=== PATIENT | male | born 1970 | race Caucasian/White ===

== ENCOUNTER → 2019-08-18 09:21 | Outpatient (CLI) | payer OTHER, SELFPAY | PROVIDERS: PCP Family Medicine; Visit Provider Physician Assistant | DX: L03.019 Cellulitis of unspecified finger (principal) | CPT/HCPCS: 87070; 87077; 87147; 87186; 87205 ==

== ENCOUNTER → 2019-09-17 07:07 | Outpatient (CLI) | payer OTHER, SELFPAY ==
[2019-09-17 07:43] LABS: Add Manual Diff / Slide Review NO; Basophils Absolute Auto 0 /uL (0-100); Basophils Percent Auto 0.7 % (0-2); Eosinophils Absolute Auto 100 /uL (0-450); Eosinophils Percent Auto 2.1 % (2-4); Hematocrit 43.7 % (41-53); Hemoglobin 15.2 g/dL (13.5-17.5); Lymphocytes Absolute Auto 2000 /uL (1100-4500); Mean Corpuscular HGB Conc 34.8 % (30-36); Mean Corpuscular Hemoglobin 30.3 PG (26-34); Mean Corpuscular Volume 87.2 fL (80-100); Monocytes Absolute Auto 600 /uL (0-900); Monocytes Percent Auto 9.2 % (3-14); Neutrophils Absolute Auto 3400 /uL (1500-7000); Platelet Count 242 X10^3/uL (150-400); Red Blood Cell Count 5.01 X10^6/uL (4.5-5.9); Red Cell Distribution Width 14.2 % (11.6-14.8); White Blood Cell Count 6.2 X10^3/uL (4.5-11.0)
[2019-09-17 07:57] LABS: Alanine Aminotransferase 25 IU/L (21-72); Albumin 4.4 g/dL (3.5-5.0); Albumin Globulin Ratio 1.2 (1.0-2.8); Alkaline Phosphatase 60 U/L (38-126); Aspartate Aminotransferase 26 IU/L (17-59); Bilirubin Total 0.5 mg/dL (0.2-1.3); Blood Urea Nitrogen 18 mg/dL (9-20); Calcium 9.6 mg/dL (8.4-10.2); Carbon Dioxide 29 mmol/L (22-32); Chloride 104 mmol/L (98-107); Cholesterol 253 mg/dL (140-199); Estimated Glomerular Filt Rate > 60.0 mL/min (>60); Globulin 3.7 g/dL (1.7-4.1); Glucose 116 mg/dL (70-100); HDL Cholesterol 39 mg/dL (40-60); HEMOLYSIS 16 (0-50); LDL Cholesterol Calculated 188 mg/dL (<100); Potassium 4.7 mmol/L (3.4-5.1); Sodium 139 mmol/L (137-145); Total Protein 8.1 g/dL (6.3-8.2); Triglycerides 128 mg/dL (35-150)
[2019-09-17 08:34] LABS: TSH w/ Reflex to FT4 3.23 uIU/mL (0.47-4.68)
== END ==
PROVIDERS: PCP Family Medicine; Visit Provider Family Medicine
DX: Z13.1 Encounter for screening for diabetes mellitus (principal); Z13.6 Encounter for screening for cardiovascular disorders
CPT/HCPCS: 36415; 80053; 80061; 84443; 85025

== ENCOUNTER → 2021-03-28 07:47 | Outpatient (CLI) | payer OTHER, SELFPAY ==
[2021-03-28 08:59] LABS: Add Manual Diff / Slide Review NO; Basophils Absolute Auto 100 /uL (0-100); Basophils Percent Auto 1.1 % (0-2); Eosinophils Absolute Auto 100 /uL (0-450); Hematocrit 44.1 % (41-53); Hemoglobin 15.2 g/dL (13.5-17.5); Lymphocytes Absolute Auto 2100 /uL (1100-4500); Lymphocytes Percent Auto 33.8 % (25-40); Mean Corpuscular HGB Conc 34.4 % (30-36); Mean Corpuscular Hemoglobin 30.5 PG (26-34); Mean Corpuscular Volume 88.5 fL (80-100); Monocytes Absolute Auto 600 /uL (0-900); Monocytes Percent Auto 10.2 % (3-14); Neutrophils Absolute Auto 3300 /uL (1500-7000); Neutrophils Percent Auto 52.9 % (50-75); Platelet Count 229 X10^3/uL (150-400); Red Blood Cell Count 4.98 X10^6/uL (4.5-5.9); Red Cell Distribution Width 13.3 % (11.6-14.8); White Blood Cell Count 6.3 X10^3/uL (4.5-11.0)
[2021-03-28 09:34] LABS: Alanine Aminotransferase 20 IU/L (<50); Albumin 4.1 g/dL (3.5-5.0); Albumin Globulin Ratio 1.2 (1.0-2.8); Alkaline Phosphatase 55 U/L (38-126); Aspartate Aminotransferase 26 IU/L (17-59); BUN Creatinine Ratio 26.8 (6-22); Bilirubin Total 0.4 mg/dL (0.2-1.3); Blood Urea Nitrogen 26 mg/dL (9-20); Calcium 9.7 mg/dL (8.4-10.2); Carbon Dioxide 27 mmol/L (22-32); Chloride 102 mmol/L (98-107); Cholesterol 205 mg/dL (140-199); Estimated Glomerular Filt Rate > 60.0 mL/min (>60); Globulin 3.5 g/dL (1.7-4.1); Glucose 96 mg/dL (70-100); HDL Cholesterol 55 mg/dL (40-60); HEMOLYSIS < 15 (0-50); LDL Cholesterol Calculated 137 mg/dL (<100); Potassium 4.6 mmol/L (3.4-5.1); Sodium 137 mmol/L (137-145); Total Protein 7.6 g/dL (6.3-8.2); Triglycerides 66 mg/dL (35-150)
[2021-03-28 09:42] LABS: Hemoglobin A1C% w Est Avg Glu 5.3 % (4.0-6.0)
== END ==
PROVIDERS: PCP Family Medicine; Referring Provider Family Medicine; Visit Provider Family Medicine
DX: E66.9 Obesity, unspecified (principal); R73.01 Impaired fasting glucose
CPT/HCPCS: 36415; 80053; 80061; 83036; 85025

== ENCOUNTER → 2021-04-14 11:18 | Outpatient (CLI) | payer OTHER, SELFPAY ==
[2021-04-14 12:12] LABS: COVID19 -Nasal RAPID Negative (Negative)
== END ==
PROVIDERS: PCP Family Medicine; Visit Provider Specialist
DX: Z20.822 Contact with and (suspected) exposure to COVID-19 (principal)
CPT/HCPCS: 87635; C9803

== ENCOUNTER 2021-04-17 12:03 | Day surgery (SDC) | payer OTHER, SELFPAY ==
[2021-04-14 13:27] VITALS: BMI 30.5
[2021-04-17] VITALS (8 sets, daily range): BP systolic 123–141; BP diastolic 76–86; PULSE 55–71; RESP 12–97; TEMP 36–36.9; O2SAT 88–98; BMI 29.2
[2021-04-17] MEDS: LACTATED RINGERS 1,000 ML 42 ML IV ×2 (12:53→13:59)
--- NOTE | 2021-04-17 12:58 | PM.PREOP ---
Pre-operative Note COVID-19 COVID-19 status: Negative Result date/Date tested (Pos, Neg/Pending): 04/16/21 Interval Note History & Physical reviewed/Exam performed by Physician: Yes Changes to H&P: No
--- NOTE | 2021-04-17 13:37 | SUR.OPER ---
Supine on padded OR bed, head on pillow, arms secured on padded arm boards at <90 degrees abduction, legs uncrossed, safety belt at thigh, tape over blanket over lower legs.
[2021-04-17] MEDS: CEFAZOLIN 1 GM VIAL 2 GM IV (13:43)
[2021-04-17] MEDS: BUPIVACAINE 0.5% (PF) VIAL 30 ML INJ (13:43)
--- NOTE | 2021-04-17 14:12 | PM.OP.1 ---
Operative Date/Time/Diagnoses Date of procedure: 04/17/21 Time of procedure: 14:12 Pre-op diagnosis: Incarcerated umbilical hernia Post-op diagnosis: same Procedure & Clinicians Procedure: Repair primary without mesh Same procedure as scheduled: Yes Indications: Symptomatic umbilical hernia with chronic incarceration. Surgeon: Amilcar [place] Click Yes if Unassisted: Yes Anesthesia Type: General Operative Notes Findings: Small amount of fat incarcerated in a large sac. Closure Type: primary Specimen(s): none sent Prosthetic devices, grafts, tissues, transplants, or devices: None Estimated Blood Loss (mL): 5 Blood products transfused: none Procedure in detail: The patient was placed supine on the operating room table and underwent general LMA anesthesia. They were prepped and draped in the usual fashion. A curvilinear incision was made under the umbilicus and carried down to the level of the fascia. The fascia overlying was cleared of tissue. The opening was approximately 1.5 cm in diameter. It was felt to be too small to place mesh under the fascia without extending the fascial opening. The fascia was closed with interrupted/figure of 8 1. Ethibond.. The subcu was closed with interrupted 3 0 Vicryl and the skin was closed with a running 4 0 Vicryl subcuticular stitch and Steri-Strips. Dressing was applied and the patient was awakened and taken to the recovery area in good condition. The patient appeared to tolerate the procedure well. Complications: none Post-operative Condition: stable Disposition: PACU
[2021-04-17] MEDS: OXYCODONE/ACETAMINOPHEN 5/325 TABLET 1 TAB PO (14:31)
== END 2021-04-17 15:14 | disposition home or self-care (01) ==
PROVIDERS: PCP Family Medicine; Referring Provider Specialist; Visit Provider Specialist
PROC: (CPT 49587; principal; 2021-04-17 13:15)
DX: K42.0 Umbilical hernia with obstruction, without gangrene (principal)
CPT/HCPCS: 49587; J0330; J0690; J1100; J2405; J2704; J3010

== ENCOUNTER → 2021-11-06 09:28 | Outpatient (CLI) | payer OTHER, SELFPAY ==
[2021-11-06 11:02] LABS: COVID19 -Nasal RAPID Negative (Negative)
== END ==
PROVIDERS: PCP Family Medicine; Visit Provider Surgery
DX: Z01.812 Encounter for preprocedural laboratory examination (principal); Z20.822 Contact with and (suspected) exposure to COVID-19
CPT/HCPCS: 87635; C9803

== ENCOUNTER 2021-11-09 06:38 | Day surgery (SDC) | payer OTHER, SELFPAY ==
[2021-11-09] VITALS (7 sets, daily range): BP systolic 105–123; BP diastolic 71–82; PULSE 61–74; RESP 12–93; TEMP 36.1–36.9; O2SAT 66–96; BMI 30.7
[2021-11-09] MEDS: LACTATED RINGERS 1,000 ML 42 ML IV (07:18)
--- NOTE | 2021-11-09 07:46 | P.HP_ITS ---
History of Present Illness History of Present Illness Date Patient Seen: 11/09/21 Time Patient Seen: 07:46 Chief complaint: SDC Narrative: The patient presents for colorectal sreening. They have never had any previous examination for such. No personal or family history of colon cancer. On further history denies any recent gastrointestinal symptoms. No nausea, vomiting, abdominal pain, loss of appetite, unexplained weight loss, change in bowel habits, diarrhea, constipation, melena, hematochezia, or bright red blood per rectum. Patient History Family & Social History Family History Father Age: 77 Essential hypertension Leukemia, unspecified leukemia type High cholesterol Stroke Mother Age: 72 High cholesterol Grandfather Heart disease Social History: household members spouse,children Tobacco & Substance use: Smoking Status Never smoker alcohol intake current alcohol intake frequency holiday/special occasion Substance Use Type does not use Meds Home Medications and Allergies Home Medications Medication Instructions Recorded Confirmed Type cholecalciferol (vitamin D3) 10 10 mcg PO DAILY 04/02/21 11/09/21 History mcg (400 unit) capsule multivitamin 1 tab PO DAILY 04/02/21 11/09/21 History plant stanol micah 450 mg tablet 450 mg PO DAILY 04/02/21 11/09/21 History (Cholest Off) turmeric 400 mg capsule 400 mg PO DAILY 04/02/21 11/09/21 History Allergies Allergy/AdvReac Type Severity Reaction Status Date / Time No Known Drug Allergies Allergy Verified 11/09/21 07:07 Exam Vital Signs (past 8 hours): - 11/09/21 07:22 Temperature 98.3 F Pulse Rate 71 Respiratory Rate 16 Blood Pressure 123/82 Pulse Oximetry 96 Oxygen Delivery Method Room Air Narrative Exam Narrative: Constitutional-he is oriented to person, place and time. No apparent distress Cardiovascular- regular rate, no peripheral edema Pulmonary-unlabored respiratory effort, no audible wheezing Abdominal-soft, non-tender, non-distended Assessment & Plan Assessment & Plan narrative: The patient requires colorectal screening and colonoscopy is recommended. Technical details were discussed. Risks, benefits, alternatives explained. Risks including but not limited to myocardial infarction, aspiration, bleeding, pain, missed lesion, incomplete examination, need for further radiographic mika dies, colonic perforation, and need for major abdominal surgery were discussed. All questions were answered to their satisfaction, and they are in agreement with this plan. Time Spent With Patient Critical Care time: I spent a total of [] minutes of critical care time on this patient's care today; this time is exclusive of procedural time.
[2021-11-09] MEDS: MIDAZOLAM 5 MG/5 ML VIAL IV (07:56)
[2021-11-09] MEDS: fentaNYL 250 MCG/5 ML INJ IV (07:59)
--- NOTE | 2021-11-09 08:08 | PM.OP.COLON ---
Operative Date/Time/Diagnoses Date of procedure: 11/09/21 Time of procedure: 08:08 Pre-op diagnosis: Screening colonoscopy Post-op diagnosis: same Procedure & Clinicians Study performed: Colonoscopy Same procedure as scheduled: Yes Indications: Screening Surgeon: Corky Shepherd Procedure Notes Procedure in detail: Medications: Conscious sedation using 7mg IV midazolam and 150mcg IV of fentanyl The history and physical was performed/updated and the patient is ASA class is 1. The procedure was discussed in detail with the patient. Potential risks complications including infection, bleeding, missed diagnosis, perforation, need for surgery, and were explained. Their questions were answered and informed consent was obtained. Patient was brought to the procedure room and placed standard monitoring equipment. The patient's vital signs were monitored continuously throughout the entire procedure. Prior to starting time-out was performed. The patient was placed in the left lateral recumbent position. Procedural sedation was administered. Examination began with a thorough inspection of the perianal area there was no evidence of fissures, fistulae, external hemorrhoids or cutaneous malignancy. The colonoscopy scope was then placed into the anal canal and was advanced to the cecum, which was identified by the ileocecal valve, the appendiceal orifice and the confluence of the taenia. The scope was then slowly withdrawn examining colon thoroughly in all directions, irrigating it of any residual stool. FINDINGS 1. No masses or polyps 2. Sigmoid diverticulosis 3. Grade 1 internal hemorrhoids The patient tolerated the procedure well. They will be discharged once criteria are met. The prep was of good/excellent quality. The withdrawl time was 6 minutes. The sedation time was 16 minutes. Specimen(s): none sent Complications: none Impression: Normal colonoscopy Post-procedure Recommendations: Colonoscopy in 10 years Disposition: same day surgery
--- NOTE | 2021-11-09 08:26 | SUR.PHASEI ---
0812 hrs: Pt transported to PACU breathing unassisted, Report from YOLA Baltazar.
--- NOTE | 2021-11-09 08:51 | SUR.PHASEII ---
Pt up in wheelchair, dressed self in bathroom, waiting for and drinking coffee. Denies pain and nausea.
== END 2021-11-09 09:05 | disposition home or self-care (01) ==
PROVIDERS: PCP Family Medicine; Referring Provider Surgery; Visit Provider Surgery
PROC: 0DJD8ZZ Inspection of Lower Intestinal Tract, Via Natural or Artificial Opening Endoscopic (ICD-10-PCS; CPT 45378; principal; 2021-11-09 07:45)
DX: Z12.11 Encounter for screening for malignant neoplasm of colon (principal); K57.30 Diverticulosis of large intestine without perforation or abscess without bleeding; K64.0 First degree hemorrhoids
CPT/HCPCS: 45378; 99152; J2250; J3010

== ENCOUNTER → 2022-05-25 16:33 | Outpatient (CLI) | payer OTHER, SELFPAY ==
--- NOTE | 2022-05-25 16:37 | DI.RAD.S_ITS ---
PROCEDURE: XR ANKLE RT MIN 3V INDICATIONS: Right ankle injury TECHNIQUE: 3 views of the ankle were acquired. COMPARISON: None. FINDINGS: Bones: No fractures or dislocations. Ankle mortise is normally aligned. No suspicious bony lesions. Soft tissues: No tibiotalar joint effusion. Achilles tendon appears normal. IMPRESSION: No definite radiographic abnormality. If pain persists with conservative management, consider cross sectional imaging such as CT or MRI for further assessment. Dictated by: Jass Goldman [facility] Interpreted: Nikhil Irizarry MD on 05/26/2022 at 16:12 Transcribed by: SERGE on 05/26/2022 at 16:12 Approved by: Nikhil Irizarry M.D. on 05/26/2022 at 16:48
== END ==
PROVIDERS: PCP Family Medicine; Referring Provider Nurse Practitioner Family; Visit Provider Nurse Practitioner Family
DX: S99.911A Unspecified injury of right ankle, initial encounter (principal)
CPT/HCPCS: 73610

== ENCOUNTER → 2023-02-25 07:07 | Outpatient (CLI) | payer OTHER, SELFPAY ==
[2023-02-25 09:00] LABS: Add Manual Diff / Slide Review NO; Basophils Absolute Auto 0 /uL (0-100); Basophils Percent Auto 0.7 % (0-2); Eosinophils Absolute Auto 200 /uL (0-450); Eosinophils Percent Auto 3.5 % (2-4); Hematocrit 43.4 % (41-53); Hemoglobin 14.7 g/dL (13.5-17.5); Lymphocytes Absolute Auto 2200 /uL (1100-4500); Lymphocytes Percent Auto 45.9 % (25-40); Mean Corpuscular Hemoglobin 30.3 PG (26-34); Mean Corpuscular Volume 89.3 fL (80-100); Monocytes Absolute Auto 500 /uL (0-900); Monocytes Percent Auto 10.2 % (3-14); Neutrophils Absolute Auto 1900 /uL (1500-7000); Neutrophils Percent Auto 39.7 % (50-75); Platelet Count 177 X10^3/uL (150-400); Red Blood Cell Count 4.86 X10^6/uL (4.5-5.9); Red Cell Distribution Width 13.9 % (11.6-14.8); White Blood Cell Count 4.8 X10^3/uL (4.5-11.0)
[2023-02-25 09:47] LABS: Alanine Aminotransferase 21 IU/L (<50); Albumin Globulin Ratio 1.3 (1.0-2.8); Alkaline Phosphatase 50 U/L (38-126); Aspartate Aminotransferase 21 IU/L (17-59); BUN Creatinine Ratio 22.5 (6-22); Bilirubin Total 0.6 mg/dL (0.2-1.3); Blood Urea Nitrogen 20 mg/dL (9-20); Carbon Dioxide 25 mmol/L (22-32); Chloride 105 mmol/L (98-107); Cholesterol 195 mg/dL (140-199); Estimated Glomerular Filt Rate > 60 mL/min (>60); Globulin 3.1 g/dL (1.7-4.1); Glucose 109 mg/dL (70-100); HDL Cholesterol 48 mg/dL (40-60); HEMOLYSIS < 15 (0-50); LDL Cholesterol Calculated 132 mg/dL (<100); Potassium 4.7 mmol/L (3.4-5.1); Sodium 137 mmol/L (137-145); Total Protein 7.1 g/dL (6.3-8.2); Triglycerides 76 mg/dL (35-150)
[2023-02-25 10:06] LABS: TSH w/ Reflex to FT4 3.02 uIU/mL (0.47-4.68)
== END ==
PROVIDERS: PCP Family Medicine; Referring Provider Family Medicine; Visit Provider Family Medicine
DX: Z00.00 Encounter for general adult medical examination without abnormal findings (principal); E78.5 Hyperlipidemia, unspecified; R73.01 Impaired fasting glucose; E03.9 Hypothyroidism, unspecified
CPT/HCPCS: 36415; 80053; 80061; 84443; 85025

== ENCOUNTER 2023-02-27 19:10 | Emergency (ER) | payer OTHER, SELFPAY ==
[2023-02-27] VITALS (20 sets, daily range): BP systolic 120–166; BP diastolic 58–100; PULSE 75–135; RESP 16–29; TEMP 36.6; O2SAT 93–98; BMI 30.2
--- NOTE | 2023-02-27 19:19 | DI.RAD.S_ITS ---
PROCEDURE: XR CHEST 1V INDICATIONS: chest pain TECHNIQUE: One view of the chest was acquired. COMPARISON: [facility], CR, XR CHEST 1 VIEW, 03/11/2021, 9:47. FINDINGS: Surgical changes and devices: None. Lungs and pleura: Lungs are clear. No pleural effusions or pneumothorax. Mediastinum: Mediastinal contours appear normal. Heart size is normal. Bones and chest wall: No suspicious bony lesions. Overlying soft tissues appear unremarkable. IMPRESSION: No acute cardiopulmonary disease. Dictated by: Yordy Burr M.D. on 02/27/2023 at 19:55 Approved by: Yordy Burr M.D. on 02/27/2023 at 19:55
--- NOTE | 2023-02-27 19:32 | ED.ARRPALP ---
HPI - Arrhythmia/Palpitations General Chief Complaint: Arrhythmia/Palpitations Stated Complaint: Lightheaded, High HR Time Seen by Provider: 02/27/23 19:24 Source: patient Mode of arrival: Ambulatory Limitations: no limitations History of Present Illness HPI narrative: Patient is a 52-year-old male who is here for evaluation of feeling like his heart is beating fast and skipping beats and somewhat lightheaded. No shortness of breath. He thinks that the symptoms started approximately 1-2 hours prior to arrival here in the ER. Has never had anything like this in the past. No other associated symptoms. He has not passed out. No chest pain. He states that he does do intermittent fasting. He just completed a 20 hour fast and then had a fairly large Easter meal just prior to the symptoms starting. Related Data Home Medications Medication Instructions Recorded Confirmed multivitamin 1 tab PO DAILY 04/02/21 06/14/22 plant stanol micah 450 mg tablet 450 mg PO DAILY 04/02/21 06/14/22 (Cholest Off) Previous Rx's Medication Instructions Recorded rivaroxaban 20 mg tablet (Xarelto) 20 mg PO QPM #21 tabs 02/27/23 Allergies Allergy/AdvReac Type Severity Reaction Status Date / Time No Known Drug Allergies Allergy Verified 02/27/23 19:14 Review of Systems Constitutional Constitutional: Reports system reviewed and no additional complaints, except as documented Cardiovascular Cardiovascular: Reports system reviewed and no additional complaints, except as documented Respiratory Respiratory: Reports system reviewed and no additional complaints, except as documented Gastrointestinal Gastrointestinal: Reports system reviewed and no additional complaints, except as documented Integumentary/Breasts Skin/Breast: Reports system reviewed and no additional complaints, except as documented Hematologic/Lymphatic On Anticoagulants: No Patient History Family History Father Age: 77 Essential hypertension Leukemia, unspecified leukemia type High cholesterol Stroke Mother Age: 72 High cholesterol Grandfather Heart disease Social History marital status: household members: spouse and children occupational status: employed Smoking Status: Never smoker alcohol intake: current substance use type: does not use Smoking Status: Never smoker alcohol intake frequency: holidays/special occasions only Substance Use Type: does not use Exam Initial Vital Signs Initial Vital Signs: Vital Signs Temperature 97.8 F 02/27/23 19:14 Pulse Rate 128 H 02/27/23 19:14 Respiratory Rate 18 02/27/23 19:14 Blood Pressure 137/100 H 02/27/23 19:14 Pulse Oximetry 95 02/27/23 19:14 Oxygen Delivery Method Room Air 02/27/23 19:14 Const General: cooperative, comfortable and No ill appearing HENMT Head: normal to inspection and normocephalic Resp Effort & Inspection: normal respiratory effort Auscultation: clear to auscultation bilaterally Cardio Rate: tachycardic Rhythm: abnormal rhythm GI Inspection: normal to inspection Skin General: no rashes or lesions noted Neuro General: patient alert, patient awake and moves all extremities Extrem General: normal to inspection Procedures Cardioversion Consent Signed: Yes Indication: AFib with RVR Stability: Stable Number of attempts (shocks): 1 Joules used: 120 Cardiac rhythm post-cardioversion: Sinus rhythm Procedural Sedation Consent signed: Yes Time out performed: Yes Indication: cardioversion ASA Class: I Mallampati Airway Classification: Class II Preparation: teletypesetter monitor applied, pulse oximeter, capnometry used, suction/airway equipment at bedside and IV secured Fentanyl: IV Fentanyl dose (mcg): 25 IV Propofol dose (mg): 150 Intraservice time/total sedation time (min): 15 ED Sedation Level: Moderate (Concious) Complications: none Course Orders Ordered: ED Orders 02/27/23 19:19 XR chest 1V Stat EKG-12 Lead Stat 02/27/23 19:33 RT Consult Eval and Treat Now 02/27/23 19:54 EKG-12 Lead Stat Discontinued Medications Aspirin (Aspirin 81 Mg Chew Tab) 324 mg PO NOW ONE Stop: 02/27/23 19:20 Last Admin: 02/27/23 20:16 Dose: Not Given Documented By: CORDELL Fentanyl (Fentanyl 100 Mcg/2 Ml Inj) 25 mcg IV NOW ONE Stop: 02/27/23 19:33 Last Admin: 02/27/23 19:45 Dose: 25 mcg Documented By: SILVIA Sodium Chloride (Normal Saline 0.9%) 1,000 mls @ 125 mls/hr IV CONT NATHAN Last Infusion: 02/27/23 21:12 Dose: 0 mls/hr Documented By: Admin: 02/27/23 19:42 Dose: 125 mls/hr Documented By: CORDELL Propofol (Propofol 200 Mg/20 Ml Vial) 100 mg 1 mg/kg (100 mg) IV NOW ONE Stop: 02/27/23 19:33 Last Admin: 02/27/23 19:47 Dose: 100 mg Documented By: SILVIA Rivaroxaban (Rivaroxaban 10 Mg Tablet) 20 mg PO NOW ONE Stop: 02/27/23 19:40 Last Admin: 02/27/23 20:38 Dose: 20 mg Documented By: ARABELLA Vital Signs Vital signs: Vital Signs - 8 hr 02/27/23 19:47 02/27/23 19:47 02/27/23 19:50 Pulse Rate 129 H 121 H Respiratory Rate 18 17 Blood Pressure 164/78 H Pulse Oximetry 98 93 Oxygen Delivery Method Room Air Nasal Cannula Oxygen Flow Rate 2 02/27/23 19:50 02/27/23 19:54 02/27/23 19:54 Pulse Rate 76 Respiratory Rate 18 Blood Pressure 140/63 120/58 L Pulse Oximetry 97 Oxygen Delivery Method Oxygen Flow Rate 02/27/23 19:55 02/27/23 19:55 02/27/23 20:00 Pulse Rate 76 Respiratory Rate 16 Blood Pressure 127/64 131/64 Pulse Oximetry 97 Oxygen Delivery Method Room Air Oxygen Flow Rate 02/27/23 20:00 02/27/23 20:05 02/27/23 20:05 Pulse Rate 75 79 Respiratory Rate 24 22 Blood Pressure 126/70 Pulse Oximetry 95 95 Oxygen Delivery Method Oxygen Flow Rate 02/27/23 20:10 02/27/23 20:10 02/27/23 20:15 Pulse Rate 79 79 Respiratory Rate 18 21 Blood Pressure 129/71 Pulse Oximetry 95 96 Oxygen Delivery Method Oxygen Flow Rate 02/27/23 20:15 02/27/23 20:20 02/27/23 20:20 Pulse Rate 80 Respiratory Rate 17 Blood Pressure 123/68 130/78 Pulse Oximetry 97 Oxygen Delivery Method Oxygen Flow Rate 02/27/23 20:25 02/27/23 20:25 02/27/23 20:30 Pulse Rate 80 Respiratory Rate 20 Blood Pressure 124/68 131/72 Pulse Oximetry 96 Oxygen Delivery Method Oxygen Flow Rate 02/27/23 20:30 02/27/23 20:35 02/27/23 20:35 Pulse Rate 79 81 Respiratory Rate 24 29 H Blood Pressure 134/69 Pulse Oximetry 96 95 Oxygen Delivery Method Oxygen Flow Rate 02/27/23 20:40 02/27/23 20:40 02/27/23 20:45 Pulse Rate 81 77 Respiratory Rate 25 H 19 Blood Pressure 136/74 Pulse Oximetry 96 96 Oxygen Delivery Method Oxygen Flow Rate 02/27/23 20:45 02/27/23 20:50 02/27/23 20:50 Pulse Rate 81 Respiratory Rate 23 Blood Pressure 130/74 136/75 Pulse Oximetry 96 Oxygen Delivery Method Oxygen Flow Rate 02/27/23 20:55 02/27/23 20:55 Pulse Rate 80 Respiratory Rate 22 Blood Pressure 136/76 Pulse Oximetry 96 Oxygen Delivery Method Oxygen Flow Rate MDM - Arrhythmia/Palpitations Lab Data Attestation: I reviewed the patient's lab results. 02/27/23 17:32 02/27/23 17:32 Labs: Lab Results 02/27/23 02/27/23 02/27/23 Range/Units 17:32 17:32 17:32 WBC 8.2 (4.5-11.0) X10^3/uL RBC 5.06 (4.5-5.9) X10^6/uL Hgb 15.5 (13.5-17.5) g/dL Hct 44.7 (41-53) % MCV 88.3 (80-100) fL MCH 30.6 (26-34) PG MCHC 34.6 (30-36) % RDW 13.8 (11.6-14.8) % Plt Count 204 (150-400) X10^3/uL Neut % (Auto) 44.1 L (50-75) % Lymph % (Auto) 41.2 H (25-40) % Bremer % (Auto) 11.2 (3-14) % Eos % (Auto) 2.8 (2-4) % Baso % (Auto) 0.7 (0-2) % Neut # (Auto) 3600 (1833-2478) /uL Lymph # (Auto) 3400 (5437-2126) /uL Bremer # (Auto) 900 (0-900) /uL Eos # (Auto) 200 (0-450) /uL Baso # (Auto) 100 (0-100) /uL PT 13.1 H (10.1-12.7) SECONDS INR 1.1 (0.9-1.3) APTT 32 (26-36) SECONDS Sodium 139 (137-145) mmol/L Potassium 3.8 (3.4-5.1) mmol/L Chloride 102 (98-107) mmol/L Carbon Dioxide 28 (22-32) mmol/L BUN 23 H (9-20) mg/dL Creatinine 1.04 (0.66-1.25) mg/dL Estimated GFR > 60 (>60) mL/min BUN/Creatinine Ratio 22.1 H (6-22) Glucose 106 H (70-100) mg/dL Calcium 9.2 (8.4-10.2) mg/dL Magnesium 2.1 (1.6-2.3) mg/dL Total Bilirubin 0.3 (0.2-1.3) mg/dL AST 25 (17-59) IU/L ALT 21 (<50) IU/L Alkaline Phosphatase 64 (38-126) U/L Total Creatine Kinase 84 (55-170) U/L CK-MB (CK-2) TNP CK-MB (CK-2) Rel Index TNP Troponin I < 0.012 (0.01-0.034) ng/mL Total Protein 8.4 H (6.3-8.2) g/dL Albumin 4.4 (3.5-5.0) g/dL Globulin 4.0 (1.7-4.1) g/dL Albumin/Globulin Ratio 1.1 (1.0-2.8) Lipase 91 (23-300) U/L Imaging Data Chest x-ray: Radiologist's Impresson: PROCEDURE:? XR CHEST 1V ? INDICATIONS:? chest pain ? TECHNIQUE:? One view of the chest was acquired.? ? COMPARISON:? [facility], CR, XR CHEST 1 VIEW, 03/11/2021, 9:47. ? FINDINGS:? ? Surgical changes and devices:? None.? ? Lungs and pleura:? Lungs are clear.? No pleural effusions or pneumothorax.? ? Mediastinum:? Mediastinal contours appear normal.? Heart size is normal.? ? Bones and chest wall:? No suspicious bony lesions.? Overlying soft tissues appear unremarkable.? ? IMPRESSION:? No acute cardiopulmonary disease. ECG Data Attestation: I personally reviewed and interpreted this ECG as follows: Interpretation: Arrival EKG Atrial fibrillation Ventricular rate 144 Normal QRS Normal QTC Nonspecific ST T wave changes Post cardioversion EKG Sinus rhythm Ventricular rate is 75 Normal axis Normal QRS Normal QTC No ST T wave changes MDM Narrative Medical decision making narrative: Patient arrived approximately 2 hours after the onset of palpitations which on the EKG does show atrial fibrillation with RVR. Patient has had no prior history of this. His workup here in the emergency department is unremarkable. I discussed with him the risks and benefits of his options to include rate control versus rhythm control. After this discussion the patient opted for the sedation in the cardioversion which was successful. Patient states he did not remember feel any of the procedure. He would no complications with the procedure. He was given his dose of anticoagulation we will send him home with a prescription for this. He is an appointment with his primary doctor already scheduled for tomorrow. This was scheduled prior to the events of today. I did advise that he keep this appointment and he can talk with his primary doctor about further workup of his AFib. He was given return precautions. He expressed understanding and agreement. Discharge Plan Departure Patient Disposition: Home Clinical Impression: Atrial fibrillation status post cardioversion Instructions: DI for Cardioversion, DI for Atrial Fibrillation Activity Restrictions/Additional Instructions: I recommend that you keep your appointment that you have tomorrow with your primary doctor. You can talk with him about further workup of the episode of atrial fibrillation that you had today. We are starting you on a medicine called Xarelto/Rivaroxaban. This is a 1 time a day medication. It was sent to [facility] per your request. I do recommend that you go to the Xarelto co-pay card website. You can just Google this. Fill out the information. The numbers that you get with doing this can be presented to the pharmacist which will reduce the cost of this expensive medication. Return to the emergency department for any new symptoms. Prescriptions: New Xarelto 20 mg tablet 20 mg PO QPM Qty: 21 0RF Rx Instructions: must administer with evening meal No Action multivitamin Tablet 1 tab PO DAILY Cholest Off 450 mg tablet 450 mg PO DAILY Referrals: Gilberto Hoang MD [Primary Care Provider] - Stand Alone Forms: Patient Portal/API
[2023-02-27 19:39] LABS: Add Manual Diff / Slide Review NO; Basophils Absolute Auto 100 /uL (0-100); Basophils Percent Auto 0.7 % (0-2); Eosinophils Absolute Auto 200 /uL (0-450); Eosinophils Percent Auto 2.8 % (2-4); Hematocrit 44.7 % (41-53); Hemoglobin 15.5 g/dL (13.5-17.5); Lymphocytes Absolute Auto 3400 /uL (1100-4500); Lymphocytes Percent Auto 41.2 % (25-40); Mean Corpuscular HGB Conc 34.6 % (30-36); Mean Corpuscular Hemoglobin 30.6 PG (26-34); Mean Corpuscular Volume 88.3 fL (80-100); Monocytes Absolute Auto 900 /uL (0-900); Monocytes Percent Auto 11.2 % (3-14); Neutrophils Absolute Auto 3600 /uL (1500-7000); Neutrophils Percent Auto 44.1 % (50-75); Platelet Count 204 X10^3/uL (150-400); Red Blood Cell Count 5.06 X10^6/uL (4.5-5.9); Red Cell Distribution Width 13.8 % (11.6-14.8); White Blood Cell Count 8.2 X10^3/uL (4.5-11.0)
[2023-02-27] MEDS: SODIUM CHLORIDE 0.9% 1,000 ML 125 ML IV (19:42)
[2023-02-27] MEDS: fentaNYL 100 MCG/2 ML INJ 25 MCG IV (19:45)
[2023-02-27] MEDS: propofoL 200 MG/20 ML VIAL 100 MG IV (19:47)
[2023-02-27 19:48] LABS: INR 1.1 (0.9-1.3); Prothrombin Time 13.1 SECONDS (10.1-12.7)
[2023-02-27 19:51] LABS: PTT Partial Thromboplastin Tim 32 SECONDS (26-36)
[2023-02-27 19:53] LABS: Alanine Aminotransferase 21 IU/L (<50); Albumin 4.4 g/dL (3.5-5.0); Albumin Globulin Ratio 1.1 (1.0-2.8); Alkaline Phosphatase 64 U/L (38-126); Aspartate Aminotransferase 25 IU/L (17-59); BUN Creatinine Ratio 22.1 (6-22); Bilirubin Total 0.3 mg/dL (0.2-1.3); Blood Urea Nitrogen 23 mg/dL (9-20); Calcium 9.2 mg/dL (8.4-10.2); Carbon Dioxide 28 mmol/L (22-32); Chloride 102 mmol/L (98-107); Creatine Kinase 84 U/L (55-170); Estimated Glomerular Filt Rate > 60 mL/min (>60); Glucose 106 mg/dL (70-100); HEMOLYSIS 23 (0-50); Lipase 91 U/L (23-300); Magnesium 2.1 mg/dL (1.6-2.3); Potassium 3.8 mmol/L (3.4-5.1); Sodium 139 mmol/L (137-145); Total Protein 8.4 g/dL (6.3-8.2)
[2023-02-27 20:04] LABS: Troponin I < 0.012 ng/mL (0.01-0.034)
[2023-02-27] MEDS: RIVAROXABAN 10 MG TABLET 20 MG PO (20:38)
== END 2023-02-27 21:13 | disposition home or self-care (01) ==
PROVIDERS: Emergency Provider Emergency Medicine; PCP Family Medicine
DX: I48.91 Unspecified atrial fibrillation (principal); R07.9 Chest pain, unspecified
CPT/HCPCS: 36415; 71045; 80053; 82550; 83690; 83735; 84484; 85025; 85610; 85730; 92960; 93005; 96360; 99152; 99285; J2704; J3010

== ENCOUNTER → 2023-03-14 15:34 | Outpatient (CLI) | payer OTHER, SELFPAY ==
--- NOTE | 2023-03-14 | DI.MRI.S_ITS ---
PROCEDURE: MR KNEE LT WO CON INDICATIONS: Pain in left knee TECHNIQUE: Noncontrast sagittal PD fast spin echo and T2 fast spin echo with fat saturation, sagittal 3-D FLASH with fat saturation; coronal T1 spin echo and PD fast spin echo with fat saturation, and axial PD fast spin echo with fat saturation through the knee. COMPARISON: [facility], MR, KNEE WITHOUT CONTRAST, 02/13/2016, 20:10. FINDINGS: Image quality: Excellent. Menisci: Signal abnormality again seen in posterior horn of medial meniscus which does not meet the criteria for meniscal tear. The lateral meniscus is intact.. The meniscal root ligaments appear intact. Cruciate ligaments: The anterior cruciate ligament is mildly thickened with intrasubstance T2 hyperintense signal near its tibial insertion. The posterior cruciate ligament is intact. Medial structures: The medial collateral ligament appears intact. The posterior oblique ligament, semimembranosus tendon insertions, oblique popliteal ligament, and meniscocapsular junction appear intact. Visualized portions of the pes anserinus tendons appear normal. No abnormal bursal fluid. Lateral structures: The lateral collateral ligament, long and short heads of the biceps femoris tendon appear intact. The popliteus tendon appears normal; the popliteofibular ligament appears intact. Iliotibial band appears normal. Anterior structures: The quadriceps and patellar tendons appear intact. Patellar alignment is normal. No femoral trochlear dysplasia or ventral trochlear prominence. No edema in the infrapatellar fat pad. 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 No acute fracture or dislocation. Articulating cartilages in medial and lateral femoral tibial compartments are intact. Joint space: There is small knee joint fluid. No Ramirez's cyst. Normal appearing synovial plicae are incidentally noted. IMPRESSION: 1. Interval worsening osteoarthritic changes in patellofemoral compartment with significant osteochondral injuries involving posterior lateral aspect of patella. No fracture or dislocation. Articulating cartilages in medial and lateral femoral tibial compartments are intact. 2. Small joint effusion, no gross loose bodies. 3. Degenerative changes in posterior horn of medial meniscus. No MR evidence of focal meniscal tear. 4. Suggestion of sprain/low-grade partial-thickness tear involving mid to distal anterior cruciate ligament. No full-thickness ACL rupture. The PCL is intact. Dictated by: Ryder Grimes M.D. on 03/14/2023 at 17:29 Approved by: Ryder Grimes M.D. on 03/14/2023 at 17:34
== END ==
PROVIDERS: PCP Family Medicine; Referring Provider Orthopaedic Surgery; Visit Provider Orthopaedic Surgery
DX: M22.42 Chondromalacia patellae, left knee (principal); M25.562 Pain in left knee; M25.462 Effusion, left knee
CPT/HCPCS: 73721

== ENCOUNTER → 2023-03-24 12:09 | Outpatient (CLI) | payer OTHER, SELFPAY ==
--- NOTE | 2023-03-24 12:13 | DI.NM.S_ITS ---
PROCEDURE: NM SERENE PERF SPECT REST & STR Rest and exercise myocardial perfusion SPECT with gated imaging and ejection fraction RADIOPHARMACEUTICAL: 26.1 mCi Tc-99m sestamibi IV at rest and 27.1 mCi Tc-99m sestamibi IV at peak exercise. A two day-protocol was performed. INDICATIONS: Unspecified atrial fibrillation TECHNIQUE: Radiopharmaceutical was injected at peak stress test, and also at rest. SPECT images were obtained. SPECT myocardial perfusion images were displayed in short axis, horizontal long axis, and vertical long axis views. Gated images were reviewed using Jike Xueyuan software. COMPARISON: None. CARDIAC STRESS: A standard Edy treadmill exercise tolerance test was performed by the patient under the supervision of an attending staff. The patient exercised for 10 minutes and 28 seconds; functional aerobic impairment (NICA) is -3%. Hemodynamic data: There is normal blood pressure and heart rate response to exercise stress. Patient achieved 90% of maximum predicted heart rate at peak exercise. Symptoms: Patient denied chest pain during exercise. EKG: No diagnostic EKG changes of ischemia; rare PVCs present. FINDINGS: Raw data: There is good myocardial labeling by radiotracer. No significant motion artifacts. Left ventricle function: Gated images demonstrate normal left ventricle wall thickening. No segmental wall motion abnormality. No transient ischemic dilation; TID is 0.88 (normal less than 1.3). The left ventricle resting end-diastolic volume is 139 mL. Left ventricle stress ejection fraction is 69%; normal values are above 45%. Myocardial perfusion: There is normal distribution of activity in the left and right ventricular myocardium. No fixed or reversible perfusion defects. IMPRESSION: Low risk, normal treadmill nuclear stress test 1) No perfusion evidence of ischemia or infarction. 2) Normal left ventricular size, wall motion, and systolic function (EF post stress 69%). 3) No diagnostic ST changes during exercise or recovery. 4) No angina during the study. 5) Fair exercise capacity (11.2METs, NICA -3%). Target heart rate achieved. Appropriate BP response to exercise. 6) No prior nuclear stress test available for comparison. Dictated by: Олег Ashby MD on 03/25/2023 at 12:54 Approved by: Олег Ashby MD on 03/25/2023 at 12:57
--- NOTE | 2023-03-24 12:14 | DI.ECHO.S_ITS ---
[facility] +---------+ : : [address] [place] : : : : [id number] : : : : Phone: [phone]+ Echocardiogram Report + + :Name: CHICHO DSOUZA Study Date: 03/24/2023 Height: 72 in : :[facility] ReadingLocation: Weight: 217 lb : : Gender: Male BSA: 2.2 m2 : :: 1970 Age: 52 yrs BP: 118/76 mmHg: :Reason For Study: ATRIAL FIBRILLATION : :Ordering Physician: ERNA, : :LAKE Performed By: Hallie Martinez : :Referring: LAKE UMANZOR : + + Interpretation Summary 1) Normal left ventricular thickness, size, wall motion, and systolic function (EF 60-65%). 2) Normal right ventricular size and function. 3) No significant valvular abnormalities. 4) No prior Echo available for comparison. Procedure: A two-dimensional transthoracic echocardiogram with color flow and Doppler was performed. The study quality was technically adequate. There is no prior echocardiogram noted for this patient. The patient was in sinus rhythm with heart rates between 69-73 bpm during the exam. Left Ventricle: The left ventricle is normal in size and wall thickness. The ejection fraction is estimated to be 60-65%. Left ventricular systolic function appears normal without focal wall motion abnormalities. Diastolic parameters suggest a relaxation abnormality of the left ventricle, consistent with probable normal filling pressures. Right Ventricle: The right ventricle is normal in size and function. Atria: The left atrial size is normal. Right atrial size is normal. There is no Doppler evidence for an interatrial shunt. Mitral Valve: The mitral valve is normal in structure and function. There is trace mitral regurgitation. Aortic Valve: The aortic valve is trileaflet. The aortic valve opens well. There is no aortic valve stenosis. There is trace aortic regurgitation. Tricuspid Valve: The tricuspid valve is normal in structure and function. There is trace tricuspid regurgitation. Pulmonary artery pressures cannot be estimated because of the lack of a measurable TR jet velocity. Pulmonic Valve: The pulmonic valve is not well seen, but is grossly normal. There is mild pulmonic regurgitation. Great Vessels: The aortic root is normal size. The dimensions of the ascending aorta are normal. The IVC is of normal diameter and collapses greater than 50% with a sniff. This suggests a low right atrial pressure of 3 mm Hg. Pericardium/ Pleura There is no pericardial effusion. There is no pleural effusion. MMode/2D Measurements & Calculations LVIDd: 5.1 cm LVOT diam: 2.3 cm LVIDs: 4.0 cm Ao root diam: 3.5 cm FS: 22.1 % asc Aorta Diam: 3.4 cm EPSS: 0.85 cm Ao Arch Diam (Prox Trans): 2.7 cm IVSd: 0.91 cm LVPWd: 0.80 cm LV ramirez. diameter/BSA (cm/m^2): 2.3 LV sys. diameter/BSA (cm/m^2): 1.8 LA A2 area: 22.1 cm2 RA long axis: 5.3 cm LA A4 area: 17.6 cm2 RA area: 16.9 cm2 LA length (vol): 5.5 cm RA vol: 45.2 ml LA vol: 60.4 ml RA : 20.5 ml/m2 LA vol index: 27.4 ml/m2 IVC diam: 1.9 cm RVD1 (basal): 3.9 cm TAPSE: 1.9 cm Doppler Measurements & Calculations Ao V2 max: 143.4 cm/sec LVOT Max Cleveland: 109.0 cm/sec Ao V2 mean: 95.8 cm/sec LV V1 max P.8 mmHg Ao max P.2 mmHg LV V1 VTI: 23.8 cm Ao mean P.2 mmHg DARRICK(I,D): 3.7 cm2 Ao V2 VTI: 27.4 cm DARRICK(V,D): 3.2 cm2 sev ratio: 0.87 DARRICK indexed to BSA (cm^2/m^2): 1.7 MV E max [place]: 78.1 cm/sec PA V2 max: 95.3 cm/sec MV A max [place]: 66.6 cm/sec PA V2 mean: 75.7 cm/sec MV E/A: 1.2 PA mean P.4 mmHg Med Peak E' Cleveland: 8.0 cm/sec PA pr(Accel): 22.5 mmHg E/E' med: 9.7 Lat Peak E' [place]: 15.1 cm/sec E/E' lat: 5.2 E/e' average: 7.5 MV dec time: 0.22 sec SV(LVOT): 100.2 ml Reading Physician:04:25 PM
== END ==
PROVIDERS: PCP Family Medicine; Referring Provider Family Medicine; Visit Provider Family Medicine
DX: I37.1 Nonrheumatic pulmonary valve insufficiency (principal); I48.91 Unspecified atrial fibrillation
CPT/HCPCS: 78452; 93016; 93017; 93018; 93306; A9502

== ENCOUNTER 2023-05-11 15:59 | Outpatient (RCR) | payer OTHER, SELFPAY ==
--- NOTE | 2023-05-11 17:57 | PT.OIE ---
Current Diagnoses Stiffness of other specified joint, not elsewhere classified (05/11/23) Low back pain, unspecified (05/11/23) Visit Care Team Role Provider Type Gilberto Hoang MD Family Provider Physician Primary Care Provider Specialty: Family Practice Address: [address] [place] [address], [id number] Email: [email or web address] Satya Crawford MD Attending Provider Non-Staff Referring Provider Specialty: Internal Medicine Address: [address] [place] [address], [id number] Email: Physical Therapy Initial Evaluation PT-OP-A Visit Information Start: 05/11/23 17:20 Freq: Status: Active Protocol: Document 05/11/23 16:30 DCW (Rec: 05/11/23 17:40 DCW [id number]) Out-Patient Physical Therapy Visit Information Visit Information Visit Type Initial Evaluation Visit Start Time 16:30 Visit Stop Time 17:15 Total Visit Minutes 45 Visit Number 1 Number of CRUISE DIRECTOR Visits 0 Evaluation Information Evaluation Date 05/11/23 PT-OP-B Current Condition Start: 05/11/23 17:20 Freq: Status: Active Protocol: Document 05/11/23 16:30 DCW (Rec: 05/11/23 17:40 DCW [id number]) Current Condition History of Current Condition Onset Date 2-3 year history Current Complaints Low back pain with extended sitting/standing History of Current Condition Pt is a 52 year old male with a 2-3 year history of low back pain. Pt reports his has noticed that his back muscles are all knotted up, and pt notes he gets dull, aching low back pain after sitting or standing longer than 15 minutes. Admits he finds himself either slumping forward or sliding down in his seat (sacral sitting) when sitting, or, when standing, feeling like he needs to lean against the wall for support. Reports his lumbar x-rays were unremarkable, but radiologist 's report not available to PT at time of evaluation. Most relief comes from lying down and allowing his back to relax more. PT-OP-C Subjective Start: 05/11/23 17:20 Freq: Status: Active Protocol: Document 05/11/23 16:30 DCW (Rec: 05/11/23 17:40 DCW [id number]) OP-PT Subjective Patient Comments Patient Comments I just want to take care of this before it becomes more of a problem. Patient Reported Progress Same Patient Questionnaires Oswestry Low Back Index Oswestry Score 50 = 32% OP-PT Pain Assessment Pain Assessment Grid Paper Pain Assessment Grid Completed Yes: See scan PT-OP-F Manual Assessment Start: 05/11/23 17:20 Freq: Status: Active Protocol: Document 05/11/23 16:30 DCW (Rec: 05/11/23 17:40 DCW [id number]) Manual Assessments Soft Tissue Assessment Soft Tissue Mobility Assessment Large fatty mass approximately 6 cm round along medial edge of right scapula. Hypertonia along thoracolumbar paraspinals, R>L with tenderness to palpation 2/4: pain with wincing Joint Mobility Assessment Joint Mobility Assessment Lumbar vertebral hypomobility with tenderness to palpation 3 /4: wincing and withdraw PT-OP-K Range of Motion Start: 05/11/23 17:20 Freq: Status: Active Protocol: Document 05/11/23 16:30 DCW (Rec: 05/11/23 17:40 DCW [id number]) Lumbar Spine Range of Motion Lumbar Spine Active Degrees Testing Position Standing Flexion 45 Extension 15 Lateral Flexion Left 49 Lateral Flexion Right 48 ROM Limitations Soft Tissue Tightness,Bony Restriction,Pain Comments Lateral flexion measured in cm from fingertips to floor PT-OP-L Special Tests Start: 05/11/23 17:20 Freq: Status: Active Protocol: Document 05/11/23 16:30 DCW (Rec: 05/11/23 17:40 DCW [id number]) Special Tests Lumbar Spine Special Tests Straight Leg Raise Test Results Hamstring tightness Standing Flexion Test Results Negative Slump Test Results Negative Prone Press Up Test Results Negative Manual Traction Test Results Negative Compression Test Results Mild discomfort A-P Shearing Test Results Negative PT-OP-Q Treatments Start: 05/11/23 17:20 Freq: Status: Active Protocol: Document 05/11/23 16:30 DCW (Rec: 05/11/23 17:42 DCW [id number]) Therapeutic Exercises Supine Exercises Air bicycle Supine Exercise Name PPT /c air bicycle Reps/Minutes 10 SLR Supine Exercise Name PPT /c SLR Reps/Minutes 5 hold Marching Supine Exercise Name PPT /c Marching Reps/Minutes 5 PPT Supine Exercise Name PPT /c TrA activation Reps/Minutes 5 hold PT-OP-T Assessment and Plan Start: 05/11/23 17:20 Freq: Status: Active Protocol: Document 05/11/23 16:30 DCW (Rec: 05/11/23 17:56 DCW [id number]) Physical Therapy Assessment Rehab Potential Rehabilitation Potential Excellent Evaluation Complexity Number of Personal Factors/Comorbidities 0 Number of Body Systems Impaired 3 Clinical Presentation at Evaluation Stable Impairments Impairments Activity Tolerance,Functional Activities,Functional Mobility ,Pain,Posture,ROM,Soft Tissue Mobility,Strength,Tone Goals Two Impairment Pt experiences increased low back pain after sitting/ standing >15 minutes Intermediate Goal (LTG) Pt to demonstrate ability to sit upright for >45 minutes with no increased pain LTG Duration 07/11/23 One Impairment Pt does not have an appropriate home exercise program Short Term Goal (STG) Pt to be compliant and independent with an appropriate HEP STG Duration 06/10/23 Assessment Summary Assessment Pt presents with signs and symptoms consistent with lumbar hypomobility and poor abdominal bracing. Pt was able to demonstrate good core contraction, however typically relies heavily on his low back for stability when standing or walking, leading to fatigue and poor posture, resulting in pt slumping forward or needing to lean up against the wall for support. Pt does show increased tone along thoracolumbar paraspinals, R>L, as well as tenderness to palpation and immobility in lumbar vertebrae . Pt should benefit from skilled therapy focusing on core stabilization training, STM, stretching, and functional mobility training. Pt tends to be fairly active, will likely do pretty well with short instruction and manual work as needed with quick transition to independent home program. Physical Therapy Plan Frequency and Duration Frequency of Treatment 1-2x/week Plan of Care Start Date 05/11/23 Plan of Care End Date 07/11/23 Therapeutic Interventions Therapeutic Interventions Home Exercise Program,Joint Mobilizations,Manual Therapy, Neuromuscular Re-education, Patient/Caregiver Education, Self-Care/Home Management,Soft Tissue Mobilization, Therapeutic Activities, Therapeutic Exercises Modalities Cold Pack/Ice Massage,Electric Stimulation,Hot Packs, Ultrasound Next Visit Focus/Plan Next Note Type Treatment Note Next Visit Plan STM, stretching/flexibility
--- NOTE | 2023-05-11 17:57 | PT.OPPOC ---
Physical, Occupational & Speech Therapy At [facility] Current Diagnoses Stiffness of other specified joint, not elsewhere classified (05/11/23) Low back pain, unspecified (05/11/23) Visit Care Team Role Provider Type Gilberto Hoang MD Family Provider Physician Primary Care Provider Specialty: Family Practice Address: [address] [place] [address], [id number] Email: [email or web address] Satya Crawford MD Attending Provider Non-Staff Referring Provider Specialty: Internal Medicine Address: [address] [place] [address], [address] Email: Plan Of Care PT-OP-T Assessment and Plan Start: 05/11/23 17:20 Freq: Status: Active Protocol: Document 05/11/23 16:30 DCW (Rec: 05/11/23 17:56 DCW [id number]) Physical Therapy Assessment Rehab Potential Rehabilitation Potential Excellent Evaluation Complexity Number of Personal Factors/Comorbidities 0 Number of Body Systems Impaired 3 Clinical Presentation at Evaluation Stable Impairments Impairments Activity Tolerance,Functional Activities,Functional Mobility ,Pain,Posture,ROM,Soft Tissue Mobility,Strength,Tone Goals Two Impairment Pt experiences increased low back pain after sitting/ standing >15 minutes Senior Living Goal (LTG) Pt to demonstrate ability to sit upright for >45 minutes with no increased pain LTG Duration 07/11/23 One Impairment Pt does not have an appropriate home exercise program Short Term Goal (STG) Pt to be compliant and independent with an appropriate HEP STG Duration 06/10/23 Assessment Summary Assessment Pt presents with signs and symptoms consistent with lumbar hypomobility and poor abdominal bracing. Pt was able to demonstrate good core contraction, however typically relies heavily on his low back for stability when standing or walking, leading to fatigue and poor posture, resulting in pt slumping forward or needing to lean up against the wall for support. Pt does show increased tone along thoracolumbar paraspinals, R>L, as well as tenderness to palpation and immobility in lumbar vertebrae . Pt should benefit from skilled therapy focusing on core stabilization training, STM, stretching, and functional mobility training. Pt tends to be fairly active, will likely do pretty well with short instruction and manual work as needed with quick transition to independent home program. Physical Therapy Plan Frequency and Duration Frequency of Treatment 1-2x/week Plan of Care Start Date 05/11/23 Plan of Care End Date 07/11/23 Therapeutic Interventions Therapeutic Interventions Home Exercise Program,Joint Mobilizations,Manual Therapy, Neuromuscular Re-education, Patient/Caregiver Education, Self-Care/Home Management,Soft Tissue Mobilization, Therapeutic Activities, Therapeutic Exercises Modalities Cold Pack/Ice Massage,Electric Stimulation,Hot Packs, Ultrasound Next Visit Focus/Plan Next Note Type Treatment Note Next Visit Plan STM, stretching/flexibility Plan of Care Dates Plan of Care Start Date 05/11/23 Plan of Care End Date 07/11/23 Electronically Signed by: Beck Lomeli, PT 05/11/23 4771 If you are in agreement with this Plan of Care, please return a signed and dated copy. I have reviewed this Plan of Care and certify that the skilled therapy services above are required to meet the patient?s needs. Physician Signature Date Printed Name and Credentials Clinical Instructor Signature Printed Name and Credentials
--- NOTE | 2023-09-05 14:22 | PT.OPDS ---
Current Diagnoses Stiffness of other specified joint, not elsewhere classified (05/11/23) Low back pain, unspecified (05/11/23) Visit Care Team Role Provider Type Gilberto Hoang MD Family Provider Physician Primary Care Provider Specialty: Family Practice Address: [address] [place] [address], [address] Email: [email or web address] Satya Crawford MD Attending Provider Non-Staff Referring Provider Specialty: Internal Medicine Address: [address] [place] [address], [address] Email: Visit Number Visit Number 1 Discharge Summary PT-OP-B Current Condition Start: 05/11/23 17:20 Freq: Status: Active Protocol: Document 05/11/23 16:30 DCW (Rec: 05/11/23 17:40 DCW [id number]) Current Condition History of Current Condition Onset Date 2-3 year history Current Complaints Low back pain with extended sitting/standing History of Current Condition Pt is a 52 year old male with a 2-3 year history of low back pain. Pt reports his has noticed that his back muscles are all knotted up, and pt notes he gets dull, aching low back pain after sitting or standing longer than 15 minutes. Admits he finds himself either slumping forward or sliding down in his seat (sacral sitting) when sitting, or, when standing, feeling like he needs to lean against the wall for support. Reports his lumbar x-rays were unremarkable, but radiologist 's report not available to PT at time of evaluation. Most relief comes from lying down and allowing his back to relax more. PT-OP-C Subjective Start: 05/11/23 17:20 Freq: Status: Active Protocol: Document 05/11/23 16:30 DCW (Rec: 05/11/23 17:40 DCW [id number]) OP-PT Subjective Patient Comments Patient Comments I just want to take care of this before it becomes more of a problem. Patient Reported Progress Same Patient Questionnaires Oswestry Low Back Index Oswestry Score 16/50 = 32% OP-PT Pain Assessment Pain Assessment Grid Paper Pain Assessment Grid Completed Yes: See scan PT-OP-F Manual Assessment Start: 05/11/23 17:20 Freq: Status: Active Protocol: Document 05/11/23 16:30 DCW (Rec: 05/11/23 17:40 DCW [id number]) Manual Assessments Soft Tissue Assessment Soft Tissue Mobility Assessment Large fatty mass approximately 6 cm round along medial edge of right scapula. Hypertonia along thoracolumbar paraspinals, R>L with tenderness to palpation 2/4: pain with wincing Joint Mobility Assessment Joint Mobility Assessment Lumbar vertebral hypomobility with tenderness to palpation 3 /4: wincing and withdraw PT-OP-K Range of Motion Start: 05/11/23 17:20 Freq: Status: Active Protocol: Document 05/11/23 16:30 DCW (Rec: 05/11/23 17:40 DCW [id number]) Lumbar Spine Range of Motion Lumbar Spine Active Degrees Testing Position Standing Flexion 45 Extension 15 Lateral Flexion Left 49 Lateral Flexion Right 48 ROM Limitations Soft Tissue Tightness,Bony Restriction,Pain Comments Lateral flexion measured in cm from fingertips to floor PT-OP-L Special Tests Start: 05/11/23 17:20 Freq: Status: Active Protocol: Document 05/11/23 16:30 DCW (Rec: 05/11/23 17:40 DCW [id number]) Special Tests Lumbar Spine Special Tests Straight Leg Raise Test Results Hamstring tightness Standing Flexion Test Results Negative Slump Test Results Negative Prone Press Up Test Results Negative Manual Traction Test Results Negative Compression Test Results Mild discomfort A-P Shearing Test Results Negative PT-OP-T Assessment and Plan Start: 05/11/23 17:20 Freq: Status: Active Protocol: Document 09/05/23 14:20 DCW (Rec: 09/05/23 14:21 DCW [id number]) Physical Therapy Assessment Assessment Summary Assessment Pt had canceled all follow-up appointments, and has now not been seen in three months. Pt will be discharged from skilled PT at this time, will require a new referral in order to return. Physical Therapy Plan Discharge Physical Therapy Discharge Reasons No Longer Attending PT
== END 2023-09-08 08:12 | disposition home or self-care (01) ==
LOC: PHYS 15:59
PROVIDERS: Family Provider Family Medicine; PCP Family Medicine; Referring Provider Internal Medicine; Visit Provider Internal Medicine
DX: M54.50 Low back pain, unspecified (principal); M25.69 Stiffness of other specified joint, not elsewhere classified
CPT/HCPCS: 97110; 97161

== ENCOUNTER → 2023-07-26 16:57 | Outpatient (CLI) | payer OTHER, SELFPAY ==
--- NOTE | 2023-07-26 | DI.MRI.S_ITS ---
PROCEDURE: MR KNEE RT WO CON INDICATIONS: unspecified internal derangement of rt knee TECHNIQUE: Noncontrast sagittal PD fast spin echo and T2 fast spin echo with fat saturation, sagittal 3-D FLASH with fat saturation; coronal T1 spin echo and PD fast spin echo with fat saturation, and axial PD fast spin echo with fat saturation through the knee. COMPARISON: [facility], CR, XR KNEE 4+ VIEWS RIGHT, 07/12/2023, 16:05. [facility], MR, MR KNEE LT WO CON, 03/14/2023, 16:07. FINDINGS: Image quality: Excellent. Menisci: Subtle signal abnormality involving medial periphery of posterior horn medial meniscus extending to inferior articulating surface concerning for subtle oblique tear. The lateral meniscus is intact. The meniscal root ligaments appear intact. Cruciate ligaments: Degenerative changes are noted in anterior cruciate ligament. The posterior cruciate ligament is intact. Medial structures: The medial collateral ligament appears mildly thickened. The posterior oblique ligament, semimembranosus tendon insertions, oblique popliteal ligament, and meniscocapsular junction appear intact. Visualized portions of the pes anserinus tendons appear normal. No abnormal bursal fluid. Lateral structures: The lateral collateral ligament, long and short heads of the biceps femoris tendon appear intact. The popliteus tendon appears normal; the popliteofibular ligament appears intact. Iliotibial band appears normal. Anterior structures: The quadriceps and patellar tendons appear intact. Patellar alignment is normal. No femoral trochlear dysplasia or ventral trochlear prominence. No edema in the infrapatellar fat pad. Bones and cartilage: No bone marrow contusions or fractures. 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 Joint space: There is small knee joint fluid. There is a tiny Ramirez's cyst. Normal appearing synovial plicae are incidentally noted. IMPRESSION: 1. Subtle oblique tear involving posterior horn of medial meniscus medial periphery extending to inferior articulating surface. The lateral meniscus is intact. 2. Degenerative changes in anterior cruciate ligament. No ACL rupture. The PCL is intact. 3. Low-grade MCL sprain. 4. 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 Small joint effusion and a tiny bakers cyst. No loose bodies. Dictated by: Ryder Grimes M.D. on 07/27/2023 at 9:10 Approved by: Ryder Grimes M.D. on 07/27/2023 at 9:17
== END ==
PROVIDERS: Family Provider Family Medicine; PCP Family Medicine; Referring Provider Orthopaedic Surgery Foot and Ankle Surgery; Visit Provider Orthopaedic Surgery Foot and Ankle Surgery
DX: S83.241A Other tear of medial meniscus, current injury, right knee, initial encounter (principal); S83.411A Sprain of medial collateral ligament of right knee, initial encounter; M17.11 Unilateral primary osteoarthritis, right knee; M22.41 Chondromalacia patellae, right knee; M25.461 Effusion, right knee; M23.91 Unspecified internal derangement of right knee
CPT/HCPCS: 73721

== ENCOUNTER → 2023-09-26 16:10 | Outpatient (CLI) | payer OTHER, SELFPAY ==
--- NOTE | 2023-09-26 | DI.ECHO.S_ITS ---
[place] +---------+ [facility] +---------+ : : [address] : : : : [id number] : : : : Phone: [phone]+ Echocardiogram Report + + :Name: CHICHO DSOUZA Study Date: 09/26/2023 Height: 71 in : :[facility] ReadingLocation: Weight: 230 lb : : Gender: Male BSA: 2.2 m2 : :: 1970 Age: 52 yrs BP: 133/87 mmHg: :Reason For Study: Atrial Fibrillation : :Ordering Physician: DARIO, : :ALDO Performed By: Genny Pearl : :Referring: ALDO BISHOP : + + Interpretation Summary The ejection fraction is estimated to be 60-65%. There has been no significant change since the previous exam. There is no significant valvular heart disease. Procedure: A two-dimensional transthoracic echocardiogram with color flow and Doppler was performed. The study quality was technically difficult. Comparison is made with the echocardiogram of 03/24/2023. A contrast injection of Definity was performed to improve assessment of LV function. The patient was in normal sinus rhythm during the exam. Left Ventricle: The ejection fraction is estimated to be 60-65%. There has been no significant change since the previous exam. Left ventricular wall motion is normal. Right Ventricle: The right ventricle is normal in size and function. Atria: The left atrial size is normal. Right atrial size is normal. There is no Doppler evidence for an interatrial shunt. Mitral Valve: The mitral valve is normal. There is no mitral valve stenosis. There is trace mitral regurgitation. Aortic Valve: The aortic valve is trileaflet. The aortic valve opens well. There is no aortic valve stenosis. There is trace aortic regurgitation. Tricuspid Valve: The tricuspid valve is not well visualized. There is no tricuspid stenosis. No tricuspid regurgitation. Pulmonic Valve: The pulmonic valve is not well visualized. There is no pulmonic valvular stenosis. There is trace pulmonic regurgitation. Great Vessels: The aortic root is normal size. The ascending aorta is normal in size. The pulmonary artery is normal size. The IVC is of normal diameter and collapses greater than 50% with a sniff. This suggests a low right atrial pressure of 3 mm Hg. Pericardium/ Pleura There is no pericardial effusion. There is no pleural effusion. MMode/2D Measurements & Calculations LVIDd: 4.2 cm LVOT diam: 2.1 cm LVIDs: 2.5 cm Ao root diam: 3.4 cm FS: 40.5 % asc Aorta Diam: 3.5 cm IVSd: 1.1 cm LVPWd: 1.3 cm LV ramirez. diameter/BSA (cm/m^2): 1.9 LV sys. diameter/BSA (cm/m^2): 1.1 LA A2 area: 19.3 cm2 RA long axis: 4.7 cm LA A4 area: 18.9 cm2 RA area: 13.1 cm2 LA length (vol): 5.7 cm RA vol: 30.9 ml LA vol: 54.0 ml RA : 13.8 ml/m2 LA vol index: 24.1 ml/m2 RVD1 (basal): 3.7 cm LVLs ap4: 6.4 cm LVLd ap2: 7.8 cm TAPSE_phl: 2.7 cm LVLs ap2: 6.4 cm Doppler Measurements & Calculations Ao V2 max: 143.3 cm/sec LVOT Max [place]: 116.0 cm/sec Ao V2 mean: 98.8 cm/sec LV V1 max P.4 mmHg Ao max P.0 mmHg LV V1 VTI: 23.3 cm Ao mean P.8 mmHg DARRICK(I,D): 2.8 cm2 Ao V2 VTI: 29.1 cm DARRICK(V,D): 2.8 cm2 sev ratio: 0.80 DARRICK indexed to BSA (cm^2/m^2): 1.2 MV E max [place]: 84.0 cm/sec PA V2 max: 87.3 cm/sec MV A max [place]: 85.9 cm/sec PA V2 mean: 60.4 cm/sec MV E/A: 0.98 PA mean P.0 mmHg Med Peak E' [place]: 10.9 cm/sec PA pr(Accel): 20.9 mmHg E/E' med: 7.7 Lat Peak E' [place]: 16.4 cm/sec E/E' lat: 5.1 E/e' average: 6.4 MV dec time: 0.15 sec SV(LVOT): 80.7 ml AV VR_phl: 0.81 DARRICK(VTI)/BSA_phl: 1.2 Reading Physician:12:33 PM
== END ==
PROVIDERS: Family Provider Family Medicine; PCP Family Medicine; Referring Provider Chiropractor; Visit Provider Chiropractor
DX: I48.91 Unspecified atrial fibrillation (principal)
CPT/HCPCS: 93306; Q9957

== ENCOUNTER → 2024-01-05 17:39 | Outpatient (CLI) | payer OTHER, SELFPAY | PROVIDERS: Family Provider Family Medicine; PCP Family Medicine; Visit Provider Physician Assistant Surgical | DX: J02.9 Acute pharyngitis, unspecified (principal) | CPT/HCPCS: 87070 ==

== ENCOUNTER 2024-11-12 08:21 | Emergency (ER) | payer OTHER, SELFPAY ==
--- NOTE | 2024-11-12 08:25 | ED_ITS ---
HPI - General Adult General Chief complaint: Arrhythmia/Palpitations Stated complaint: poss low heart rate Time Seen by Provider: 11/12/24 08:24 History of Present Illness HPI narrative: 54-year-old male reports history of atrial fibrillation 2022, had been on blood thinners for while which was discontinued, taking metoprolol 25 mg long-acting once daily, was awakened by his smart watch alarm indicating that his heart rate was 42-47, had no symptoms at that time, then seemed to be worried about his heart rate, felt like maybe he was a little bit lightheaded but unclear if maybe he was worrying about his heart rate. Denied any chest pain or shortness of breath. No change in metoprolol dose. No new medications. No change in oral utjn-vnk-uvwruur supplements. He does not take eyedrops. He does not have a pacemaker. He has not aware of any thyroid problems. He has recently been feeling okay, no fevers or chills or acute illness symptoms. Related Data Home Medications Medication Instructions Recorded Confirmed multivitamin 1 tab PO DAILY 04/02/21 07/13/24 melatonin PO 01/05/24 08/31/24 coenzyme Q10 100 mg capsule 100 mg PO DAILY 07/13/24 07/13/24 (CoQ-10) Previous Rx's Medication Instructions Recorded metoprolol succinate 25 mg 25 mg PO DAILY #90 tabs 08/06/24 tablet,extended release 24 hr Allergies Allergy/AdvReac Type Severity Reaction Status Date / Time No Known Drug Allergies Allergy Verified 06/15/24 18:46 Patient History Medical History (Updated 11/12/24 @ 08:55 by Henrry Lerma MD) PTSD (post-traumatic stress disorder) Family History Father Age: 79 Essential hypertension Leukemia, unspecified leukemia type High cholesterol Stroke Mother Age: 74 High cholesterol Grandfather Heart disease Social History marital status: household members: spouse and children occupational status: employed Smoking Status: Never smoker alcohol intake: current substance use type: does not use Smoking Status: Never smoker alcohol intake frequency: holidays/special occasions only Exam Narrative Exam Narrative: GENERAL: Well-developed patient, in mild distress. HEAD: Atraumatic. Normocephalic. EYES: Pupils equal round and reactive. Extraocular motions intact. No scleral icterus. No injection or drainage. ENT: Nose without bleeding, purulent drainage. Throat without erythema, tonsillar hypertrophy or exudate. Airway patent. NECK: Trachea midline. Non tender CARDIOVASCULAR: Regular rate and rhythm without murmurs, gallops, or rubs. RESPIRATORY: Clear to auscultation. Breath sounds equal bilaterally. No wheezes, rales, or rhonchi. GASTROINTESTINAL: Abdomen soft, non-tender, nondistended. EXTREMITIES: No edema or joint tenderness. BACK: Nontender without deformity or crepitance. No flank tenderness. NEURO: AOx3. Motor functions grossly nonfocal SKIN: No rash or erythema of visible areas Initial Vital Signs Initial Vital Signs: Vital Signs Temperature 98.7 F 11/12/24 08:30 Pulse Rate 62 11/12/24 08:30 Respiratory Rate 16 11/12/24 08:30 Blood Pressure 166/84 H 11/12/24 08:30 Pulse Oximetry 98 11/12/24 08:30 Oxygen Delivery Method Room Air 11/12/24 08:30 Course Orders Ordered: ED Orders 11/12/24 08:24 EKG-12 Lead Stat 11/12/24 08:26 XR chest 1V Stat Complete Blood Count AUTO DIFF Stat Comprehensive Metabolic Panel Stat Lipase Stat Troponin & CK Cardiac Panel Stat 11/12/24 08:27 TSH [Thyroid Stimulating Hormone] Stat Vital Signs Vital signs: Vital Signs - 8 hr 11/12/24 08:30 Temperature 98.7 F Pulse Rate 62 Respiratory Rate 16 Blood Pressure 166/84 H Pulse Oximetry 98 Oxygen Delivery Method Room Air Medical Decision Making Lab Data Lab results reviewed: Yes I reviewed the patient's lab results. 11/12/24 08:30 11/12/24 08:30 Labs: Lab Results 11/12/24 Range/Units 08:30 WBC 6.6 (4.5-11.0) X10^3/uL RBC 5.15 (4.5-5.9) X10^6/uL Hgb 15.5 (13.5-17.5) g/dL Hct 45.4 (41-53) % MCV 88.1 (80-100) fL MCH 30.1 (26-34) PG MCHC 34.2 (30-36) % RDW 13.8 (11.6-14.8) % Plt Count 234 (150-400) X10^3/uL Neut % (Auto) 51.0 (50-75) % Lymph % (Auto) 36.4 (25-40) % [place] % (Auto) 9.6 (3-14) % Eos % (Auto) 2.3 (2-4) % Baso % (Auto) 0.7 (0-2) % Neut # (Auto) 3300 (8650-1690) /uL Lymph # (Auto) 2400 (3603-9014) /uL [place] # (Auto) 600 (0-900) /uL Eos # (Auto) 200 (0-450) /uL Baso # (Auto) 0 (0-100) /uL Sodium 138 (137-145) mmol/L Potassium 3.9 (3.4-5.1) mmol/L Chloride 106 (98-107) mmol/L Carbon Dioxide 24 (22-32) mmol/L BUN 26 H (9-20) mg/dL Creatinine 0.95 (0.66-1.25) mg/dL Estimated GFR > 60 (>60) mL/min BUN/Creatinine Ratio 27.4 H (6-22) Glucose 118 H (70-100) mg/dL Calcium 9.5 (8.4-10.2) mg/dL Total Bilirubin 0.7 (0.2-1.3) mg/dL AST 28 (17-59) IU/L ALT 27 (<50) IU/L Alkaline Phosphatase 61 (38-126) U/L Total Creatine Kinase 72 (55-170) U/L Troponin I < 0.012 (0.01-0.034) ng/mL Total Protein 8.2 (6.3-8.2) g/dL Albumin 4.6 (3.5-5.0) g/dL Globulin 3.6 (1.7-4.1) g/dL Albumin/Globulin Ratio 1.3 (1.0-2.8) Lipase 78 (23-300) U/L TSH 2.39 (0.47-4.68) uIU/mL Imaging Data Chest x-ray: Radiologist's Impression: [address] [address] XRay Report Signed Patient: Clovis Marion MR#: [id number] : 1970 Acct:[id number] Age/Sex: 54 / M Date of Service: 11/12/24 Loc: ED Accession Number: [id number] Procedure: XR chest 1V Ordering Provider: Henrry Lerma MD PROCEDURE: XR CHEST 1V INDICATIONS: chest pain TECHNIQUE: One view of the chest was acquired. COMPARISON: [facility], , XR CHEST 1V, 02/27/2023, 19:29. FINDINGS: Surgical changes and devices: None. Lungs and pleura: Lungs are clear. No pleural effusions or pneumothorax. Mediastinum: Mediastinal contours appear normal. Heart size is normal. Bones and chest wall: No suspicious bony lesions. Overlying soft tissues appear unremarkable. IMPRESSION: No acute cardiopulmonary pathology. Dictated by: Ryder Grimes M.D. on 11/12/2024 at 8:57 Approved by: Ryder Grimes M.D. on 11/12/2024 at 8:57 ECG Data Attestation: I personally reviewed and interpreted this ECG as follows: Interpretation: 0830, sinus bradycardia with rate of 58, no obvious ST segment elevation or depression changes. Flat/inverted T-waves lead 3, upright in leads 2 and F. [place] 170, QRS 86, QTC 400. MDM Narrative Medical decision making narrative: 54-year-old male with history of prior atrial fibrillation, had been discontinued on anticoagulant, taking metoprolol 25 mg long-acting once daily, who is wrist alarm indicated low heart rate 42-47 this morning, no symptoms at the time, but subsequent to that he seemed to be worried about his heart rate and felt a little lightheaded, unclear if this is anxiety related to the heart rate reading prior, subsequent heart rates in the 60s usual. Screening EKG shows sinus bradycardia with rate of 58, no obvious ischemic changes. He would like lab testing. We will send laboratory studies including electrolytes and TSH and troponin. Lab testing reassuring. He declines staying for repeat troponin testing. TSH results pending at this time, can be checked in follow up with PCP Discussion of his metoprolol dosing, likely asymptomatic versus anxiety related to transient low heart rate reading, he could decrease the dose to 12.5 mg if he chooses to do so. Follow up with PCP for further evaluation as an outpatient. Discharge Plan Departure Patient Disposition: Home Clinical Impression: Bradycardia Activity Restrictions/Additional Instructions: Wrist smart watch alarm indicating low heart rate 42-47 this morning, otherwise when you had been asymptomatic, taking same metoprolol dose 25 mg long-acting daily. EKG without obvious ischemic changes, laboratory studies unremarkable. You could consider lower dose of metoprolol to 12.5 mg daily, then follow up with your regular doctor this next week. Return earlier to this/nearest emergency department for any change worsening symptoms or any concerns prior Thyroid stimulating hormone (TSH) results still pending at this time, and can be checked in follow up, to see if there is any concerns for hypothyroidism as any component problem with your low heart rate, although this is very common side effect of beta-malka such as metoprolol, which seems more likely the cause. Prescriptions: No Action melatonin PO coenzyme Q10 [CoQ-10] 100 mg capsule 100 mg PO DAILY metoprolol succinate 25 mg tablet extended release 24 hr 25 mg PO DAILY Qty: 90 3RF multivitamin Tablet 1 tab PO DAILY Referrals: Gilberto Hoang MD [Primary Care Provider] - Stand Alone Forms: Patient Portal/API/Survey
[2024-11-12 08:30] VITALS: BP 166/84; PULSE 62; RESP 16; TEMP 37.1; O2SAT 98; BMI 31.1
--- NOTE | 2024-11-12 08:30 | EKG_ITS ---
[address] [address] [address] [address] Test Date: 2024-11-12 Pat Name: Clovis Marion Department: Room: Gender: Male [employer]: RODRIGUEZ : 1970 Requested By: Order Number: [id number] Reading MD: Kingsley Major Measurements Intervals [place] Rate: 58 P: 48 WV: 170 QRS: 9 QRSD: 86 T: 17 QT: 408 QTc: 400 Interpretive Statements Sinus bradycardia Electronically Signed On 11-12-2024 11:20:59 PST by Kingsley Major
[2024-11-12 08:33] VITALS: PULSE 54; RESP 23; O2SAT 100
[2024-11-12 08:41] LABS: Add Manual Diff / Slide Review NO; Basophils Absolute Auto 0 /uL (0-100); Basophils Percent Auto 0.7 % (0-2); Eosinophils Absolute Auto 200 /uL (0-450); Eosinophils Percent Auto 2.3 % (2-4); Hematocrit 45.4 % (41-53); Hemoglobin 15.5 g/dL (13.5-17.5); Lymphocytes Absolute Auto 2400 /uL (1100-4500); Lymphocytes Percent Auto 36.4 % (25-40); Mean Corpuscular HGB Conc 34.2 % (30-36); Mean Corpuscular Hemoglobin 30.1 PG (26-34); Mean Corpuscular Volume 88.1 fL (80-100); Monocytes Absolute Auto 600 /uL (0-900); Monocytes Percent Auto 9.6 % (3-14); Neutrophils Absolute Auto 3300 /uL (1500-7000); Platelet Count 234 X10^3/uL (150-400); Red Blood Cell Count 5.15 X10^6/uL (4.5-5.9); Red Cell Distribution Width 13.8 % (11.6-14.8); White Blood Cell Count 6.6 X10^3/uL (4.5-11.0)
[2024-11-12 08:59] LABS: Alanine Aminotransferase 27 IU/L (<50); Albumin 4.6 g/dL (3.5-5.0); Albumin Globulin Ratio 1.3 (1.0-2.8); Alkaline Phosphatase 61 U/L (38-126); Aspartate Aminotransferase 28 IU/L (17-59); BUN Creatinine Ratio 27.4 (6-22); Bilirubin Total 0.7 mg/dL (0.2-1.3); Blood Urea Nitrogen 26 mg/dL (9-20); Calcium 9.5 mg/dL (8.4-10.2); Carbon Dioxide 24 mmol/L (22-32); Chloride 106 mmol/L (98-107); Creatine Kinase 72 U/L (55-170); Estimated Glomerular Filt Rate > 60 mL/min (>60); Globulin 3.6 g/dL (1.7-4.1); Glucose 118 mg/dL (70-100); HEMOLYSIS < 15 (0-50); Lipase 78 U/L (23-300); Potassium 3.9 mmol/L (3.4-5.1); Sodium 138 mmol/L (137-145); Total Protein 8.2 g/dL (6.3-8.2)
[2024-11-12 09:00] VITALS: PULSE 53; RESP 16; O2SAT 97
[2024-11-12 09:01] VITALS: BP 133/72; PULSE 53; RESP 20; O2SAT 96
[2024-11-12 09:10] LABS: Troponin I < 0.012 ng/mL (0.01-0.034)
[2024-11-12 09:30] VITALS: BP 141/90; PULSE 54; RESP 20; O2SAT 97
[2024-11-12 09:30] LABS: Thyroid Stimulating Hormone 2.39 uIU/mL (0.47-4.68)
== END 2024-11-12 09:47 | disposition home or self-care (01) ==
PROVIDERS: Emergency Provider Emergency Medicine; Family Provider Family Medicine; PCP Family Medicine
DX: R00.1 Bradycardia, unspecified (principal); R42 Dizziness and giddiness; Z86.79 Personal history of other diseases of the circulatory system
CPT/HCPCS: 36415; 71045; 80053; 82550; 83690; 84443; 84484; 85025; 93005; 99283; 99284

== ENCOUNTER → 2025-01-31 14:23 | Outpatient (CLI) | payer OTHER, SELFPAY ==
--- NOTE | 2025-01-31 15:41 | DIET.CONS ---
Dietary Consultation Note Assessment: 54 y M referred to dietitian for impaired fasting glucose. Clovis reports wanting to lose weight. Having tried many diets in the past- keto, noom, fasting. Is currently fasting. Wants to find something sustainable. Has noted weight gain started around 1 yr ago, decrease in physical activity (running and weight lifting d/t pain in the joints) Diet recall: L-big salad with greens, beet, sauerkraut, and sardines with oil evoo- sweet craving afterwards 6a-dfpww-azo cream, chips, >1/2 c nuts coming home very hungry 530p: chx, rice, danay, spag and meatballs, other typical homemade dinners Nothing after 630p fasting begins Water3-4 L water, black coffee -24 oz cups x3/day, stops by 9am Sparkling water zero kiara Activity: 1 hr a day work week walks, 1.5 hr walking weekends Ht: 6ft Wt: 249 lb BMI: 33.8 UBW: 218 lb on 04/04/23, 233 lb on 06/14/22 Nutrition Diagnosis: Excessive energy intake r/t inadequate energy intake during the day followed by excessive hunger and energy dense food choices when home from work aeb diet recall after 4pm being ice cream and chips and multiple portions of nuts Interventions: Discussed the following and provided appropriate handouts: -Different dietary styes and pros and cons (fasting vs Med) -hunger/fullness scale -Balanced meals and snacks in line with myplate/Mediterranean style of eating- impact of macronutrients on blood sugar, meal timing, carbohydrate counting, pairing macronutrients and spreading out carbohydrates for better blood glucose management -Portion sizing -Recommended servings for carbohydrates at meals and snacks -Lab values and correlation with nutrition Goals: -Pt moving up lunch to 11am and will have additional snack midday to help with hunger when getting home -Adding 1 cup wild rice to salad Monitoring/Evaluations: f/u 4 wks Electronically Signed by: Marlin Garsia 01/31/25 15:41 Clinical Dietitian [address] [address]
== END ==
LOC: DIET 14:23
PROVIDERS: Family Provider Family Medicine; PCP Family Medicine; Referring Provider Family Medicine
DX: R73.01 Impaired fasting glucose (principal); Z71.3 Dietary counseling and surveillance; Z68.33 Body mass index [BMI] 33.0-33.9, adult
CPT/HCPCS: 97802

== ENCOUNTER → 2025-03-08 13:22 | Outpatient (CLI) | payer OTHER, SELFPAY ==
--- NOTE | 2025-03-18 14:49 | DIET.CONS ---
Addendum entered by Marlin Garsia 03/18/25 15:13: Consult date was 03/08/25 Original Note: Dietary Consultation Note Assessment: f/u, 54 y M referred to dietitian for impaired fasting glucose. Pt reports getting 3 months supply of dexcoms. Willing to share data for review. Data shared and reports printed for review. Pt stopped eating all sugar products and following low carb diet. Is now having same lunch plus afternoon snack for 1/2c+ of nuts. No after work snack anymore. Avg BG is 116 on dexcom. Pt's BG starts rising around 9pm some nights and then again before waking up. Little rise in glucose after eating d/t low carb. FBG sometimes >100. Often walking 1-1.5 hr per day. Ht: 6ft Wt: 249 lb BMI: 33.8 UBW: 218 lb on 04/04/23, 233 lb on 06/14/22 Nutrition Diagnosis: Altered nutrition related lab values r/t endocrine dysfunction aeb dexcom showing FBG >100 Interventions: -Discussed pro and cons of low carb diet, insulin resistance, gluconeogenesis, nicol phenomenon, and reviewed appropriate BG numbers fasting and postprandial Goals: Pt wanting to try adding carbs back into diet in modest amounts while he has dexcoms to track difference in BG. Recc 45 g CHO at meals (1 c wild/brown rice at lunch) and 15-30 g CHO at snack (1/4 c of nuts with 1 apple) Adjust or add walking time after dinner of 15-20 minutes to help with nighttime BG Monitoring/Evaluations: f/u 1 month to review BG Electronically Signed by: Marlin Garsia 03/18/25 14:49 Clinical Dietitian [address] [id number]
== END ==
LOC: DIET 13:23
PROVIDERS: Family Provider Family Medicine; PCP Family Medicine; Referring Provider Family Medicine
DX: R73.01 Impaired fasting glucose (principal); Z71.3 Dietary counseling and surveillance; Z68.33 Body mass index [BMI] 33.0-33.9, adult
CPT/HCPCS: 97803